=== PATIENT | male | born 1970 | race Hispanic/Latino ===

== ENCOUNTER 2020-08-02 16:44 | Emergency (ER) | payer OTHER ==
--- NOTE | 2020-08-02 17:10 | PCM.EKG ---
[facility] Test Date: 2020-08-02 Test Time: 17:03:53 Pat Name: TOMY PASCUAL Department: Room: Gender: M Rn [facility]: [facility] : 1970 Requested By: BENJAMÍN DENTON Order Number: [id number] Reading MD: Measurements Intervals [place] Rate: 91 P: 52 HI: 149 QRS: 40 QRSD: 78 T: 7 QT: 334 QTc: 411 Interpretive Statements Sinus rhythm No previous ECG available for comparison Please click the below link to view image of tracing.
--- NOTE | 2020-08-02 17:36 | DIREP ---
PROCEDURE:CT HEAD OR BRAIN W/O CONTRAST COMPARISON:None. INDICATIONS:fall from 20 ft, pain TECHNIQUE:CT images were created without intravenous contrast. FINDINGS: VENTRICLES:The ventricles are normal in size and configuration. CEREBRUM:Normal cerebral morphology with appropriate junior white matter differentiation. CEREBELLUM:Negative. BRAINSTEM:Negative. BASAL CISTERNS:Negative. HEMORRHAGE:No MASS LESION:No ACUTE INFARCT:No SKULL:Normal. SINUSES:Normal. OTHER:None CONCLUSION:Normal examination. Dictated by: Deion Mcclellan M.D. on 08/02/2020 at 05:33 PM
--- NOTE | 2020-08-02 17:40 | DIREP ---
PROCEDURE:CT CERVICAL SPINE WITHOUT CONTRAST TECHNIQUE:Axial cuts were obtained through the cervical spine. The images were viewed at bone and soft tissue settings. Sagittal and coronal reconstructions are provided. COMPARISON:None. INDICATIONS:fall from 20 ft, pain FINDINGS: ALIGNMENT:Normal. VERTEBRAE:Normal. PARASPINAL AREA:Normal. OTHER:No additional findings. CERVICAL DISC LEVELS C2-C3:Normal. C3-C4:Normal. C4-C5:Normal. C5-C6:Mild decreased disc height. Mild bilateral uncovertebral joint arthropathy. C6-C7:Normal. C7-T1:Normal. CONCLUSION:No acute cervical spine abnormalities. Mild degenerative changes at C5-C6. Dictated by: Deion Mcclellan M.D. on 08/02/2020 at 05:36 PM
[2020-08-02] MEDS ORDERED: DILAUDID IV STA (17:50)
[2020-08-02] MEDS ORDERED: ZOFRAN IV STA (17:50)
--- NOTE | 2020-08-02 17:51 | DIREP ---
PROCEDURE: CT SPINE LUMBAR W/O TECHNIQUE:Axial cuts were obtained through the lumbar spine. The images were viewed at bone settings. COMPARISON:None. INDICATIONS:fall from 20 ft, pain FINDINGS: ALIGNMENT:Normal. VERTEBRAE:Normal. PARASPINAL AREA:Normal. OTHER:No additional findings. LUMBAR DISC LEVELS T12-L1:Normal. L1-L2:Normal. L2-L3:Normal. L3-L4:Mild bilateral facet disease with small posterior disc bulge. Moderate bilateral neural foraminal narrowing. L4-L5:Mild bilateral facet disease with small posterior disc bulge. Moderate bilateral neural foraminal narrowing. L5-S1:Posterior disc bulge with severe bilateral neural foraminal encroachment and bilateral osteophytosis and facet disease. CONCLUSION:Lower lumbar degenerative joint disease. No acute fracture Dictated by: Ruben Townsend DO on 08/02/2020 at 05:45 PM
[2020-08-02] MEDS ORDERED: DILAUDID ONE (17:53)
[2020-08-02] MEDS ORDERED: ZOFRAN ONE (17:53)
--- NOTE | 2020-08-02 18:01 | DIREP ---
PROCEDURE:CT SPINE THORACIC W/O COMPARISON:None. INDICATIONS:fall from 20 ft, pain TECHNIQUE:Multi-planar CT images were obtained and created without intravenous contrast. FINDINGS: VERTEBRAE:Normal. ALIGNMENT:Normal. DISCS:Normal. SPINAL CORD/CONUS:Normal. PARASPINAL AREA:Normal. CONCLUSION:No acute fracture Dictated by: Ruben Townsend DO on 08/02/2020 at 05:50 PM
--- NOTE | 2020-08-02 18:04 | ER.PDOC ---
General Chief Complaint: Requesting Medical Care Stated Complaint: EXTREMITIES Time seen by MD: 17:15 Source: patient, family, EMS Exam Limitations: no limitations History of Present Illness Initial Comments Patient is an otherwise healthy 50-year-old male who presents today after a fall from a carport. Patient fell approximately height of 12 feet. Patient is with a obvious deformity to the tib-fib of the right lower extremity. Patient denies LOC and arrived hemodynamically intact. Fall occurred just prior to arrival, severity is moderate Reviewed Nursing Reviewed: Vital Signs, Abn. Noted, Nursing Assessment Review of Systems Constitutional: see HPI Eyes: denies no symptoms reported, denies see HPI, denies blindness, denies blurred vision, denies drainage, denies decreased acuity, denies foreign body sensation, denies inflammation, denies pain, denies photophobia, denies previous injury, denies shadows, denies tunnel vision, denies vision change, denies contact lenses, denies glasses, denies other Ears, Nose, Mouth, Throat: denies no symptoms reported, denies see HPI, denies ear pain, denies ear discharge, denies nose pain, denies nose discharge, denies epistaxis, denies mouth pain, denies mouth swelling, denies loose teeth, denies throat pain, denies throat swelling Respiratory: denies no symptoms reported, denies see HPI, denies cough, denies orthopnea, denies shortness of breath, denies stridor, denies wheezing, denies other Cardiovascular: denies no symptoms reported, denies see HPI, denies chest pain, denies edema, denies palpitations, denies syncope, denies other Gastrointestinal: denies no symptoms reported, denies see HPI, denies abdominal pain, denies constipation, denies diarrhea, denies nausea, denies vomiting, denies other Genitourinary: denies no symptoms reported, denies see HPI, denies discharge, denies dysuria, denies frequency, denies hematuria, denies pain, denies other Musculoskeletal: see HPI Skin: denies no symptoms reported, denies see HPI, denies change in color, denies change in hair/nails, denies dryness, denies lesions, denies lumps, denies rash, denies other Psychiatric/Neurological: denies no symptoms reported, denies see HPI, denies anxiety, denies depressed, denies emotional problems, denies headache, denies numbness, denies paresthesia, denies pre-existing deficit, denies seizure, denies tingling, denies tremors, denies weakness, denies other All Other Systems: Reviewed and Negative Physical Exam General Appearance: No Apparent Distress, WD/WN Head: No Evidence of Injury Eyes: bilateral eye normal inspection, bilateral eye PERRL, bilateral eye EOMI Ears, Nose, Mouth, Throat: Hearing Grossly Normal, No Evidence of ENT Injury, No Dental Injury Neck: Non-Tender, Normal Alignment Cardiovascular/Respiratory: Regular Rate, Rhythm, No M/R/G, Normal Peripheral Pulses Gastrointestinal: Normal Bowel Sounds, No Organomegaly Back: Normal Inspection, No Vertebral Tenderness Extremities: Bony-Point Tenderness, Unable to Bear Weight Neurologic/Psychiatric: No Motor/Sensory Deficits, Alert, Normal Mood/Affect Skin: Normal Color, Warm/Dry, Cyanosis [place] Coma Score Best Eye Response: (4) Open Spontaneously Best Verbal Response: (5) Oriented Best Motor Response: (6) Obeys Commands Splinting Splinting : Location: R posterior short leg Pre-Made Type: Hand-Made Type: orthoglass Splint: short-leg Pre-Proc Neuro Vasc Exam: normal Post-Proc Neuro Vasc Exam: normal Results/Orders Results/Orders Orders - BENJAMÍN DENTON DO Cbc With Auto Diff (08/02/20 16:53) Comprehensive Metabolic Panel (08/02/20 16:53) Creatine Kinase (08/02/20 16:53) Creatine Kinase Mb (08/02/20 16:53) PT (08/02/20 16:53) Partial Thromboplastin Time. (08/02/20 16:53) Urinalysis (08/02/20 16:53) Troponin I (08/02/20 16:53) Type And Screen (08/02/20 16:53) Ekg-Routine (08/02/20 16:53) Ct Head Wo Contrast (08/02/20 16:53) Ct Cervical Spine (08/02/20 16:53) Ct Abd/Pel With Iv Contrast (08/02/20 16:53) Ct Chest W Iv Contrast (08/02/20 16:53) Drug Scrn Med W Confirmation (08/02/20 16:53) Alcohol(Ml) (08/02/20 16:53) Xr Tib/Fib Rt (08/02/20 16:53) Xr Ankle 3v Rt (08/02/20 16:53) Ct Lumbar Wo Contrast (08/02/20 16:53) Ct Thoracic Wo Contrast (08/02/20 16:53) Xr Knee Rt 2v (08/02/20 17:00) Hydromorphone Hcl (Dilaudid) (08/02/20 17:50) Ondansetron Hcl/Pf (Zofran) (08/02/20 17:50) Ondansetron Hcl/Pf (Zofran) (08/02/20 17:53) Hydromorphone Hcl (Dilaudid) (08/02/20 17:53) Xr Tib/Fib Rt (08/02/20 18:04) Administered Medications Medications (Trade) Dose Ordered Sig/Michelle Route PRN Reason Start Time Stop Time Status Last Admin Dose Admin Hydromorphone HCl (Dilaudid) 1 mg STAT STAT IV 08/02/20 17:50 08/02/20 17:52 DC 08/02/20 18:07 1 MG Ondansetron HCl (Zofran) 4 mg STAT STAT IV 08/02/20 17:50 08/02/20 17:52 DC 08/02/20 18:27 4 MG Laboratory Tests Test 08/02/20 17:55 White Blood Count 19.1 10^3/uL (4.5-11.0) H Red Blood Count 4.89 10^6/uL (4.50-5.90) Hemoglobin 14.3 g/dL (13.9-16.3) Hematocrit 44.4 % (37.0-53.0) Mean Corpuscular Volume 90.8 fL (78-100) Mean Corpuscular Hemoglobin 29.2 pg (26-34) Mean Corpuscular Hemoglobin Concent 32.2 g/dL (33-36.5) L Red Cell Distribution Width 13.3 % (11.5-14.5) Platelet Count 257 10^3/uL (150-400) Mean Platelet Volume 9.4 fL (7.8-11.0) Neutrophils (%) (Auto) 84.0 % (41.0-85.0) Lymphocytes (%) (Auto) 10.3 % (24.0-44.0) L Monocytes (%) (Auto) 4.5 % (5.0-12.0) L Neutrophils # (Auto) 16.0 10^3/uL (1.8-7.7) H Lymphocytes # (Auto) 1.97 10^3/uL1 (1.0-4.8) Monocytes # (Auto) 0.9 10^3/uL (0.3-0.8) H Absolute Immature Granulocyte (auto 0.14 10^3 u/L (0-2) Absolute Eosinophils (auto) 0.1 10^3/uL (0.0-0.2) Immature Granulocytes % 0.70 % (0.00-0.50) H Eosinophils % 0.3 % (0.0-5.0) Basophils % 0.2 % (0.0-0.2) Basophils # 0.0 10^3/uL (0.0-0.1) Prothrombin Time 12.5 SEC (9.6-12.0) H Prothrombin Time INR (Non-Therap) 1.2 Activated Partial Thromboplast Time 23.0 SEC (24.67-30.72) Sodium Level 140 mmol/L (132-145) Potassium Level 4.5 mmol/L (3.6-5.2) Chloride Level 106.0 mmol/L (96-109) Carbon Dioxide Level 25.5 mmol/L (20.0-32) Anion Gap 13.0 Blood Urea Nitrogen 17 mg/dL (7-18) Creatinine 1.15 mg/dL (0.59-1.40) Estimated GFR () 81.1 (>/=60) Est GFR (CKD-EPI)(Non-Afr [place]inean) 67.0 (>/=60) BUN/Creatinine Ratio 14.0 Glucose Level 107 mg/dL (70-110) Calcium Level 8.3 mg/dL (8.4-10.5) L Total Bilirubin 0.5 mg/dL (0.2-1.0) Aspartate Amino Transferase (AST) 25 U/L (0-35) Alanine Aminotransferase (ALT) 30 U/L (12-78) Alkaline Phosphatase 68 U/L (50-136) Total Creatine Kinase 182 U/L (39-308) Creatine Kinase MB 1.3 ng/mL (0.5-3.6) Troponin I < 0.02 ng/mL (0.00-0.05) Total Protein 7.0 g/dL (6.4-8.2) Albumin 4.0 g/dL (3.4-5.0) Globulin 3.0 Albumin/Globulin Ratio 1.333 Serum Alcohol < 3 mg/dL (0-50) Blood Bank Test 08/02/20 17:55 Antibody Screen NEGATIVE Blood Type O POSITIVE Progress Progress Postreduction films show suboptimal alignment. Extremity is now pulled to length however there is significant displacement of the tibia and the fibula is badly comminuted. Films reviewed by Dr. Woody who states the patient is stable to follow-up with orthopedist in [place] which is where the patient lives. Patient was given prescription for pain control and crutches and discharged in stable condition ER DEPART Departure Time of Disposition: 18:55 Disposition: 01 HOME / SELF CARE / HOMELESS Impression: Primary Impression: Fall Additional Impression: Closed fracture of right tibia and fibula Condition: Improved Referrals: PCP,UNKNOWN (PCP) PRIMARY CARE PROVIDER Duration or Time Spent with Pa: 0 Problem Qualifiers Primary Impression: Fall Encounter type: initial encounter Qualified Codes: W19.XXXA - Unspecified fall, initial encounter Additional Impression: Closed fracture of right tibia and fibula Encounter type: initial encounter Qualified Codes: S82.201A - Unspecified fracture of shaft of right tibia, initial encounter for closed fracture; S82.401A - Unspecified fracture of shaft of right fibula, initial encounter for closed fracture BENJAMÍN DENTON DO Aug 02, 2020 18:04
[2020-08-02 18:08] LABS: BASOPHIL % 0.2 % (0.0-0.2); EOSINOPHIL # 0.1 10^3/uL (0.0-0.2); EOSINOPHIL % 0.3 % (0.0-5.0); LYMPHOCYTES # 1.97 10^3/uL1 (1.0-4.8); LYMPHOCYTES % 10.3 % (24.0-44.0); MEAN CORP HGB 29.2 pg (26-34); MONOCYTES # 0.9 10^3/uL (0.3-0.8); MONOCYTES % 4.5 % (5.0-12.0); PLATELET COUNT 257 10^3/uL (150-400); RED CELL DISTRIBUTION WIDTH 13.3 % (11.5-14.5)
--- NOTE | 2020-08-02 18:13 | DIREP ---
PROCEDURE:CT CHEST ABDOMEN PELVIS W/CONTRAST COMPARISON:None. INDICATIONS:fall from 20 ft, pain TECHNIQUE:Axial images were obtained through the chest, abdomen and pelvis during the IV administration of nonionic contrast. No oral contrast was administered. Sagittal and coronal reconstructions were performed from source images. FINDINGS: LUNGS:Normal. No visible pulmonary disease. PLEURA:Normal. No mass or effusion. CARDIAC:Normal. No enlargement, pericardial thickening, or significant calcification. MEDIASTINUM/EVENS:Normal. No mass or adenopathy. CHEST WALL:Normal. No mass or axillary adenopathy. LIVER:Normal. No significant liver lesions are identified. BILIARY:Normal. No visible dilatation or calcification. PANCREAS:Normal. No lesion, fluid collection, ductal dilatation, or atrophy. SPLEEN:Normal. No enlargement or focal lesion. ADRENALS:Normal. No mass or enlargement. URINARY TRACT:Normal. No focal lesions or hydronephrosis. AORTA/VASCULAR:Normal. No aneurysm. RETROPERITONEUM:Normal. No mass or adenopathy. BOWEL/MESENTERY:Normal. There is no intestinal obstruction, free fluid, free air or mesenteric inflammatory changes. ABDOMINAL WALL:Normal. No mass or hernia. PELVIC ORGANS:Normal. No visible mass. Pelvic organs appropriate for patient age. BONES:Prominent disc bulge at L5-S1 with severe bilateral neural foraminal narrowing. OTHER:Negative. CONCLUSION: 1. Disc bulge at L5-S1 with severe bilateral neural foraminal encroachment. No visualized acute fracture. 2. No acute intracavitary process Dictated by: Ruben Townsend DO on 08/02/2020 at 06:00 PM
--- NOTE | 2020-08-02 18:34 | DIREP ---
PROCEDURE:XRAY ANKLE MIN 3VWS-RT COMPARISON:None. INDICATIONS:fall from 20 ft, pain FINDINGS: BONES:Incompletely visualized displaced fractures of the distal tibial shaft and mid fibular shaft. JOINTS:Normal. SOFT TISSUES:Normal. OTHER:No additional findings. CONCLUSION: Incompletely visualized displaced fractures of the distal tibial shaft and mid fibular shaft. Please refer to same-day dedicated imaging of this region. Dictated by: Ifeanyi Block MD on 08/02/2020 at 06:32 PM
--- NOTE | 2020-08-02 18:35 | DIREP ---
PROCEDURE:XRAY KNEE 2 VWS-RT COMPARISON:None. INDICATIONS:fall from 20 ft, pain FINDINGS: BONES:Incompletely visualized comminuted fracture of the mid fibular shaft. JOINTS:Normal. SOFT TISSUES:Normal. OTHER:Inflatable splint overlies the leg. CONCLUSION: Incompletely visualize comminuted fracture of the mid fibular shaft. Please refer to same-day dedicated imaging of this region for further detail. Dictated by: Ifeanyi Block MD on 08/02/2020 at 06:33 PM
--- NOTE | 2020-08-02 18:36 | DIREP ---
PROCEDURE:XRAY TIB & FIB 2 VW-RT COMPARISON:None. INDICATIONS:fall, pain FINDINGS: BONES:Comminuted and displaced fracture of the mid fibular shaft. There is slight apex anterior angulation. There is a comminuted and displaced transverse fracture of the distal tibial shaft with apex anterior angulation and approximately 1 shaft width posterior displacement of the distal tibial shaft with respect to the mid shaft segment. JOINTS:Normal. SOFT TISSUES:Normal. OTHER:No additional findings. CONCLUSION: Comminuted and displaced fracture of the mid fibular shaft. Comminuted displaced fracture of the mid tibial shaft. Dictated by: Ifeanyi Block MD on 08/02/2020 at 06:34 PM
[2020-08-02 18:42] LABS: ALANINE AMINOTRANSFERASE(ML) 30 U/L (12-78); ALKALINE PHOSPHATASE 68 U/L (50-136); ASPARTATE AMINO TRANSFERASE 25 U/L (0-35); CALCIUM 8.3 mg/dL (8.4-10.5); CARBON DIOXIDE 25.5 mmol/L (20.0-32); GLUCOSE 107 mg/dL (70-110)
--- NOTE | 2020-08-02 18:47 | DIREP ---
PROCEDURE:XRAY TIB & FIB 2 VW-RT COMPARISON:[facility], , XRAY TIB & FIB 2 VW-RT, 08/02/2020, 05:36 PM. INDICATIONS:post reduction FINDINGS: BONES:The comminuted fracture of the distal 3rd of the fibula appears essentially unchanged with distal fragment displaced approximately 1/2 shaft width medially. The oblique fracture of the distal diaphysis of the tibia is noted with distal fragment displaced approximately 1/2 shaft width posteriorly and slightly laterally. JOINTS:Normal. SOFT TISSUES:Normal. OTHER:No additional findings. CONCLUSION: 1. Minimally displaced comminuted fractures of the distal tibia and fibula noted following closed reduction. Dictated by: Zhao Smith M.D. on 08/02/2020 at 06:44 PM
[2020-08-02] MEDS ORDERED: NORCO 5MG PO ONE ×2 (19:00→19:26)
== END 2020-08-02 19:50 | disposition home or self-care (01) ==
LOC: ER 16:44
DX: S82.301A Unspecified fracture of lower end of right tibia, initial encounter for closed fracture (principal); S82.831A Other fracture of upper and lower end of right fibula, initial encounter for closed fracture; Z79.899 Other long term (current) drug therapy; W17.89XA Other fall from one level to another, initial encounter; Y93.89 Activity, other specified; Y92.89 Other specified places as the place of occurrence of the external cause; Y99.8 Other external cause status
CPT/HCPCS: 29515; 36415; 70450; 71260; 72125; 72128; 72131; 73560; 73590 ×2; 73610; 74177; 80053; 82077; 82550; 82553; 84484; 85025; 85610; 85730; 86900; 93005; 96374; 96375; 99285; J1170; J2405; Q9965